=== PATIENT | male | born 1940 | race Caucasian/White ===

== ENCOUNTER 2019-11-15 05:32 | Outpatient (CLI) | payer MEDICARE ==
[~2019-11-15] VITALS: Ht 175.3 cm; Wt 74.1 kg
[2019-11-15] MEDS ORDERED: GABA300C PO (13:21)
[2019-11-15] MEDS ORDERED: AMLO10TA7 PO (13:21)
[2019-11-15] MEDS ORDERED: OXYB5TAB13 PO (13:21)
[2019-11-15] MEDS ORDERED: TMSL.4C PO (13:21)
[2019-11-15] MEDS ORDERED: LOSA100T57 PO (13:21)
== END 2019-11-15 13:25 | disposition home or self-care (01) ==
LOC: PREOP 05:32
PROVIDERS: ATTEND Specialist
DX: Z01.818 Encounter for other preprocedural examination (principal)

== ENCOUNTER 2019-11-18 10:22 | Day surgery (SDC) | payer MEDICARE, OTHER ==
[~2019-11-18] VITALS: Ht 175.3 cm; Wt 74.1 kg
[~2019-11-18 10:22] MED LIST: AMLO10TA7 PO; GABA300C PO; LOSA100T57 PO; OXYB5TAB13 PO; TMSL.4C PO
[2019-11-18] MEDS: TETRACAINE 0.5% OPHTH SOLN 4 ML BTL (SINGLE DOSE ONLY) OU PRN ×4 (10:43→11:02)
[2019-11-18] MEDS ORDERED: TIMOLOL MALEATE 0.5% 5 ML (TIMOPTIC) BTL OU PRN (10:45)
[2019-11-18] MEDS ORDERED: LIDOCAINE PF 1% 2 ML VIAL IR PRN (10:45)
[2019-11-18] MEDS ORDERED: MOXIFLOXACIN OPHTH SOLN 5 MG/ML 0.3 ML SYRINGE OP ONE (10:45)
[2019-11-18] MEDS ORDERED: POVIDONE (BETADINE) OPHTH SOLN 5% 30 ML OP ONE (10:45)
[2019-11-18] MEDS: PHENYLEPHRINE 10% OPHTH (NEO-SYN) 5 ML BTL OU SCH ×3 (10:51→11:02)
[2019-11-18] MEDS: CYCLOPENTOLATE 1% (CYCLOGYL) 2 ML DROPS OP SCH ×3 (10:51→11:02)
--- NOTE | 2019-11-18 10:51 | Ophthalmologist Pre-Op Note ---
Pre-Operative Progress Note H&P Reviewed The H&P was reviewed, patient examined and no changes noted. Date H&P Reviewed: Nov 18, 2019 Time H&P Reviewed: 10:51 Pre-Op Dx Cataract, Right Eye VERO WOLF MD Nov 18, 2019 10:51
[2019-11-18 10:52] VITALS: BP 159/96
[2019-11-18] MEDS ORDERED: MIDAZOLAM 2 MG/2 ML (VERSED) VIAL ONE (11:24)
--- NOTE | 2019-11-18 11:44 | Ophthalmology Operative Report ---
Cataract removal/placement IOL PREOPERATIVE DIAGNOSIS: Cataract Right Eye POSTOPERATIVE DIAGNOSIS: Cataract Right Eye PROCEDURE: Cataract removal and placement of posterior chamber implant, right eye SURGEON: Alan Wolf ANESTHESIA: Topical with sedation COMPLICATIONS: None ESTIMATED BLOOD LOSS: Minimal DESCRIPTION OF PROCEDURE: After proper informed consent was obtained, the patient, a 78 male, was taken to the Operating Room and the right eye was anesthetized with tetracaine. The right eye was then prepped and draped in the usual manner. A wire lid speculum was placed. A paracentesis was made at the left hand position. Preservative free lidocaine was injected into the anterior chamber followed by viscoelastic. A clear corneal incision was made in the temporal position. A capsulorrhexis was preformed and the central nuclear and cortical material were removed. The posterior capsule was polished and Nghia 21.5 AU00T0 IOL was placed into the capsular bag. The residual viscoelastic was aspirated and balanced saline solution was injected into the anterior chamber. Moxifloxacin was injected into the anterior chamber. The wound was checked and found to be water tight. The patient tolerated the procedure well without complications. ALAN WOLF MD Nov 18, 2019 11:44
[2019-11-18 11:53] VITALS: BP 136/72
[2019-11-18] MEDS ORDERED: acetaZOLAMIDE ER 500 MG CAP (DIAMOX SEQUELS) PO ONE (12:00)
--- NOTE | 2019-11-18 14:26 | Anesthesia-General Post-Op ---
MAC Patient Condition Mental Status/LOC: Same as Preop Cardiovascular: Satisfactory Nausea/Vomiting: Absent Respiratory: Satisfactory Pain: Controlled Complications: Absent Post Op Complications Complications None Follow Up Care/Instructions Patient Instructions None needed. Anesthesiology Discharge Order Discharge Order Patient was seen this morning after the procedure and he was doing well, no complaints, stable vital signs, no apparent adverse anesthesia problems. JESSICA DENTON DO Nov 18, 2019 14:26
== END 2019-11-18 11:56 ==
LOC: SDC 10:22
PROVIDERS: ATTEND Specialist
DX: H25.11 Age-related nuclear cataract, right eye (principal); I10 Essential (primary) hypertension; G62.9 Polyneuropathy, unspecified; Z79.899 Other long term (current) drug therapy; Z85.46 Personal history of malignant neoplasm of prostate
CPT/HCPCS: 66984; V2632

== ENCOUNTER 2019-11-25 10:20 | Day surgery (SDC) | payer MEDICARE, OTHER ==
[~2019-11-25] VITALS: Ht 175.3 cm; Wt 85.0 kg
[2019-11-25] MEDS ORDERED: POVIDONE (BETADINE) OPHTH SOLN 5% 30 ML OP ONE (10:30)
[2019-11-25] MEDS ORDERED: MOXIFLOXACIN OPHTH SOLN 5 MG/ML 0.3 ML SYRINGE OP ONE (10:30)
[2019-11-25] MEDS ORDERED: LIDOCAINE PF 1% 2 ML VIAL IR PRN (10:30)
[2019-11-25] MEDS ORDERED: TIMOLOL MALEATE 0.5% 5 ML (TIMOPTIC) BTL OU PRN (10:30)
[2019-11-25] MEDS ORDERED: MIDAZOLAM 2 MG/2 ML (VERSED) VIAL ONE (10:35)
[2019-11-25] MEDS: TETRACAINE 0.5% OPHTH SOLN 4 ML BTL (SINGLE DOSE ONLY) OU PRN ×4 (10:37→10:58)
[2019-11-25] MEDS: CYCLOPENTOLATE 1% (CYCLOGYL) 2 ML DROPS OP SCH ×3 (10:43→10:58)
[2019-11-25] MEDS: PHENYLEPHRINE 10% OPHTH (NEO-SYN) 5 ML BTL OU SCH ×3 (10:43→10:58)
[2019-11-25 10:56] VITALS: BP 153/80
--- NOTE | 2019-11-25 11:11 | Ophthalmologist Pre-Op Note ---
Pre-Operative Progress Note H&P Reviewed The H&P was reviewed, patient examined and no changes noted. Date H&P Reviewed: Nov 25, 2019 Time H&P Reviewed: 11:11 Pre-Op Dx Cataract, Left Eye VERO WOLF MD Nov 25, 2019 11:11
--- NOTE | 2019-11-25 11:37 | Ophthalmology Operative Report ---
Cataract removal/placement IOL PREOPERATIVE DIAGNOSIS: Cataract Left Eye POSTOPERATIVE DIAGNOSIS: Cataract Left Eye PROCEDURE: Cataract removal and placement of posterior chamber implant, left eye SURGEON: Alan Wolf ANESTHESIA: Topical with sedation COMPLICATIONS: None ESTIMATED BLOOD LOSS: Minimal DESCRIPTION OF PROCEDURE: After proper informed consent was obtained, the patient, a 78 male, was taken to the Operating Room and the left eye was anesthetized with tetracaine. The left eye was then prepped and draped in the usual manner. A wire lid speculum was placed. A paracentesis was made at the left hand position. Preservative free lidocaine was injected into the anterior chamber followed by viscoelastic. A clear corneal incision was made in the temporal position. A capsulorrhexis was preformed and the central nuclear and cortical material were removed. The posterior capsule was polished and an Nghia 22.0 AU00T0 was placed into the capsular bag. The residual viscoelastic was aspirated and balanced saline solution was injected into the anterior chamber. Moxifloxacin was injected into the anterior chamber. The wound was checked and found to be water tight. The patient tolerated the procedure well without complications. ALAN WOLF MD Nov 25, 2019 11:37
[2019-11-25 11:42] VITALS: BP 151/78
--- NOTE | 2019-11-25 11:51 | Anesthesia-General Post-Op ---
MAC Patient Condition Mental Status/LOC: Same as Preop Cardiovascular: Satisfactory Nausea/Vomiting: Absent Respiratory: Satisfactory Pain: Controlled Complications: Absent Post Op Complications Complications None Follow Up Care/Instructions Patient Instructions None needed. Anesthesiology Discharge Order Discharge Order Patient is doing well, no complaints, stable vital signs, no apparent adverse anesthesia problems. No complications reported per nursing. JUAN CARLOS HERNANDEZ KEY CARRIER Nov 25, 2019 11:51
[2019-11-25] MEDS ORDERED: acetaZOLAMIDE ER 500 MG CAP (DIAMOX SEQUELS) PO ONE (12:00)
== END 2019-11-25 11:44 | disposition home or self-care (01) ==
LOC: SDC 10:20
PROVIDERS: ATTEND Specialist
DX: H25.12 Age-related nuclear cataract, left eye (principal); I10 Essential (primary) hypertension; G62.9 Polyneuropathy, unspecified; Z85.46 Personal history of malignant neoplasm of prostate; Z79.899 Other long term (current) drug therapy
CPT/HCPCS: 66984; V2632